=== PATIENT | male | born 1975 | race Two or more races ===

== ENCOUNTER 2023-10-29 23:09 | Inpatient (IN) | payer SELFPAY ==
[~2023-10-29] VITALS: Ht 165.1 cm; Wt 81.0 kg
[2023-10-29] MEDS: ONDANSETRON HCL 4 MG/2 ML VIAL IV ONE (23:51)
[2023-10-29] MEDS: MORPHINE SULFATE 4 MG/ML SYR/VIAL IV ONE (23:52)
[2023-10-29 23:54] LABS: Basophils # (auto) 0.1 10 ^3/uL (0-0.2); Eosinophils # (auto) 0 10 ^3/uL (0-0.8); Platelet Count (auto) 202 10^3/uL (140-450)
[2023-10-29 23:58] LABS: Basophils % (auto) 1.3 % (0.0-2.0); Lymphocytes # (auto) 1.1 10 ^3/uL (0.4-5.4); Mean Corpuscular Volume 87.8 fL (80.0-100.0); Monocytes # (auto) 0.6 10 ^3/uL (0-1.3); Monocytes % (auto) 7.1 % (0.0-12.0); Neutrophils # (auto) 7.1 10 ^3/uL (1.6-8.6); Neutrophils % (auto) 79.6 % (37.0-80.0); Nucleated Red Blood Cells % 0.1 %; Red Blood Cells 4.33 10^6/uL (4.5-5.90); Red Cell Distribution Width 14.2 % (11.8-14.3); White Blood Cell 8.9 10^3/uL (4.4-10.8)
[2023-10-30] VITALS (7 sets, daily range): BP systolic 112–128; BP diastolic 78; PULSE 88–106; RESP 18–22; TEMP 100.1–101.6; O2SAT 91–97
[2023-10-30] MEDS: IOHEXOL 350 MG/ML 100ML IJ ONE (00:15)
[2023-10-30 00:31] LABS: Alanine Aminotransferase 32 U/L (7-40); Albumin 4.7 g/dL (3.2-4.8); Alkaline Phosphatase 77 U/L (46-116); Anion Gap 19 (5-15); Aspartate Aminotransferase 28 U/L (13-40); BUN/Creatinine Ratio 10.4 (10.0-20.0); Bilirubin, Total 0.5 mg/dL (0.2-1.0); Blood Urea Nitrogen 7 mg/dL (9-23); Carbon Dioxide 16 mmol/L (20-30); Chloride 96 mmol/L (98-107); Glucose 253 mg/dL (74-106); Potassium 3.6 mmol/L (3.5-5.1); Sodium 131 mmol/L (136-145); Total Protein 7.8 g/dL (5.7-8.2)
[2023-10-30 00:41] LABS: Hemoglobin 13.3 g/dL (13.5-17.5); Mean Corpuscular Hgb Conc. 33.2 g/dL (32.0-36.0)
[2023-10-30] MEDS: SODIUM CHLORIDE 0.9% 1,000 ML IV ONE (02:21)
[2023-10-30] MEDS: SODIUM CHLORIDE 0.9% 2,000 ML IV ONE (02:26)
[2023-10-30] MEDS: ONDANSETRON HCL 4 MG/2 ML VIAL IV ONE ×2 (02:26→02:30)
[2023-10-30] MEDS: MORPHINE SULFATE 4 MG/ML SYR/VIAL IV ONE ×2 (02:26→02:28)
[2023-10-30 03:29] LABS: Lipase 1853 U/L (12-53)
[2023-10-30 03:39] LABS: Blood Alcohol < 3.0 mg/dL (<10)
[2023-10-30] MEDS ORDERED: DEXTROSE (50%) 50ML SYRG IV PRN (10:00)
[2023-10-30] MEDS ORDERED: NITROGLYCERIN 0.4 MG SL TAB SL PRN (10:00)
[2023-10-30] MEDS: SODIUM CHLORIDE 0.9% 1,000 ML IV SCH (10:49)
[2023-10-30] MEDS: MORPHINE SULFATE INJ 2 MG/ml SYRG IV PRN (10:51)
[2023-10-30 11:38] LABS: Cholesterol 350 mg/dL (< 200); HDL Cholesterol 28 mg/dL (40-59); Triglycerides 1338 mg/dL (< 150)
[2023-10-30] MEDS: InsuLIN REG 1unit/0.01ml Soln (100units/ml) SC SCH (12:01)
[2023-10-30] MEDS: ACCU-CHEK COMFORT CURVE STRIP VI SCH (12:02)
[2023-10-30 14:07] LABS: Urine Bacteria None Seen /hpf (None Seen)
[2023-10-30 14:38] LABS: Urine Blood TRACE /uL (Negative); Urine Clarity Clear (Clear); Urine Color Yellow (Yellow); Urine Protein, UAD 2+ (Negative); Urine Urobilinogen Normal (Negative); Urine WBC <1 /hpf (0 - 3); Urine pH 7.5 (5.0-9.0)
[2023-10-30 14:40] LABS: Urine Specific Gravity > 1.035 (1.001-1.035)
[2023-10-30 14:49] LABS: Amphetamine Screen, Urine Neg (NEGATIVE); Benzodiazephine Screen, Urine Neg (NEGATIVE)
[2023-10-30 14:51] LABS: Barbiturate Scree,Urine Neg (NEGATIVE); Cannabinoid Screen, Urine Neg (NEGATIVE); Cocaine Screen, Urine Neg (NEGATIVE); Opiate Scree,Urine Pos (NEGATIVE); Phencyclidine Screen, Urine Neg (NEGATIVE)
[2023-10-30] MEDS: PANTOPRAZOLE 40 MG/10 ML VIAL INJ IV ONE (17:51)
[2023-10-30] MEDS: PANTOPRAZOLE 40 MG/10 ML VIAL INJ IV SCH (21:46)
[2023-10-31] VITALS (8 sets, daily range): BP systolic 114–122; BP diastolic 68–75; PULSE 94–102; RESP 18–24; TEMP 99.2–101; O2SAT 90–96
[2023-10-31 06:04] LABS: Basophils # (auto) 0 10 ^3/uL (0-0.2); Basophils % (auto) 0.4 % (0.0-2.0); Eosinophils # (auto) 0 10 ^3/uL (0-0.8); Eosinophils % (auto) 0.1 % (0.0-7.0); Hemoglobin 13.5 g/dL (13.5-17.5); Lymphocytes # (auto) 1.1 10 ^3/uL (0.4-5.4); Lymphocytes % (auto) 12.8 % (10.0-50.0); Mean Corpuscular Hemoglobin 31.2 pg (28.0-32.0); Mean Corpuscular Hgb Conc. 34.7 g/dL (32.0-36.0); Mean Corpuscular Volume 89.8 fL (80.0-100.0); Monocytes # (auto) 0.4 10 ^3/uL (0-1.3); Monocytes % (auto) 4.5 % (0.0-12.0); Neutrophils # (auto) 7.2 10 ^3/uL (1.6-8.6); Neutrophils % (auto) 82.2 % (37.0-80.0); Platelet Count (auto) 175 10^3/uL (140-450); Red Blood Cells 4.34 10^6/uL (4.5-5.90); Red Cell Distribution Width 14.6 % (11.8-14.3); White Blood Cell 8.7 10^3/uL (4.4-10.8)
[2023-10-31] MEDS: ACETAMINOPHEN 325 MG TAB PO PRN (06:24)
[2023-10-31 06:35] LABS: Alanine Aminotransferase 24 U/L (7-40); Albumin 3.6 g/dL (3.2-4.8); Alkaline Phosphatase 65 U/L (46-116); Anion Gap 6 (5-15); Aspartate Aminotransferase 20 U/L (13-40); BUN/Creatinine Ratio 11.7 (10.0-20.0); Blood Urea Nitrogen 7 mg/dL (9-23); Calcium 7.9 mg/dL (8.7-10.4); Carbon Dioxide 27 mmol/L (20-30); Chloride 101 mmol/L (98-107); Potassium 3.7 mmol/L (3.5-5.1); Sodium 134 mmol/L (136-145)
[2023-10-31 06:36] LABS: Bilirubin, Total 0.6 mg/dL (0.2-1.0); Total Protein 5.9 g/dL (5.7-8.2)
[2023-10-31 06:37] LABS: Glucose 144 mg/dL (74-106)
[2023-11-01] VITALS (7 sets, daily range): BP systolic 109–136; BP diastolic 20–85; PULSE 88–109; RESP 17–22; TEMP 97.7–99.6; O2SAT 90–96
[2023-11-01] MEDS: ONDANSETRON HCL 4 MG/2 ML VIAL IV PRN (05:15)
[2023-11-01] MEDS: DOCUSATE SOD 100 MG CAP PO PRN (10:39)
[2023-11-01] MEDS: LACTULOSE 20Gm/30ML SOLN PO PRN (17:05)
[2023-11-02 05:00] VITALS: BP 125/88; PULSE 74; RESP 18; TEMP 98.6; O2SAT 94
[2023-11-02 06:52] LABS: Alanine Aminotransferase 23 U/L (7-40); Albumin 3.9 g/dL (3.2-4.8); Alkaline Phosphatase 74 U/L (46-116); Anion Gap 12 (5-15); Aspartate Aminotransferase 19 U/L (13-40); Calcium 8.6 mg/dL (8.7-10.4); Carbon Dioxide 23 mmol/L (20-30); Chloride 95 mmol/L (98-107); Glucose 197 mg/dL (74-106); LDL Cholesterol 150 mg/dL (< 100); Potassium 2.8 mmol/L (3.5-5.1); Sodium 130 mmol/L (136-145); Triglycerides 349 mg/dL (< 150)
[2023-11-02 06:53] LABS: Bilirubin, Total 0.7 mg/dL (0.2-1.0); Cholesterol 290 mg/dL (< 200); HDL Cholesterol 27 mg/dL (40-59); Total Protein 6.3 g/dL (5.7-8.2)
[2023-11-02 07:02] LABS: BUN/Creatinine Ratio 9.1 (10.0-20.0); Blood Urea Nitrogen < 5 mg/dL (9-23)
[2023-11-02 08:20] VITALS: RESP 20; O2SAT 96
[2023-11-02 08:29] LABS: Lipase 113 U/L (12-53)
[2023-11-02] MEDS: POTASSIUM CHL 20MEQ/100ML 100 ML IV SCH (08:52)
[2023-11-02 08:58] VITALS: BP 136/85; PULSE 83; RESP 18; TEMP 98.6; O2SAT 92
[2023-11-02 13:12] VITALS: BP 127/87; PULSE 78; RESP 20; TEMP 97.8; O2SAT 92
[2023-11-02 13:14] VITALS: BP 127/87; PULSE 78; RESP 20; TEMP 97.8; O2SAT 92
[2023-11-02] MEDS ORDERED: DOCU-265 PO (14:23)
[2023-11-02 15:47] VITALS: BP_SYST 125; BP_DIAS 68; BP_DIAS 86; PULSE 79; RESP 19; TEMP 36.6; O2SAT 93
== END 2023-11-02 18:37 | disposition home or self-care (01) | DRG 439 ==
LOC: ER 23:09 → OVERFLOW 10-30 09:53 → EAST 10-30 09:53 → TELE-E-ADS 11-02 08:18
PROVIDERS: ADMIT Nurse Practitioner Family; ATTEND Internal Medicine
DX: K85.90 Acute pancreatitis without necrosis or infection, unspecified (principal); E87.1 Hypo-osmolality and hyponatremia; K76.0 Fatty (change of) liver, not elsewhere classified; E11.9 Type 2 diabetes mellitus without complications; E78.00 Pure hypercholesterolemia, unspecified; E78.1 Pure hyperglyceridemia; I10 Essential (primary) hypertension; Z79.899 Other long term (current) drug therapy; Z79.4 Long term (current) use of insulin
CPT/HCPCS: 36415; 76705; 80053; 80061; 80307; 80320; 81001; 82010; 82962; 83036; 83690; 84484; 85025; G0378; J1815; J2405; J2470; J3480